=== PATIENT | female | born 1995 | race Two or more races ===

== ENCOUNTER 2018-09-14 20:22 | Emergency (ER) | payer MEDICAID ==
[~2018-09-14] VITALS: Ht 167.6 cm; Wt 77.1 kg
[2018-09-14 20:30] VITALS: BP 134/78
[2018-09-15] MEDS ORDERED: KETOROLAC TROMETH 30 MG/ML 1ML VIAL IV ONE (00:15)
[2018-09-15] MEDS ORDERED: cefTRIAXone SOD 1,000 MG VL IV ONE (00:15)
[2018-09-15] MEDS ORDERED: LIDOCAINE 1%HCL (LOCAL ANESTH) 10 ML MDV ONE (00:26)
[2018-09-15] MEDS ORDERED: LIDOCAINE 1% HCL (LOCAL ANESTH.) INJ 20ML MDV IJ ONE (00:30)
[2018-09-15] MEDS ORDERED: cefTRIAXone SOD 1,000 MG VL ONE (00:30)
[2018-09-15] MEDS ORDERED: DOXYCYCLINE 100MG/250ML 250 ML IV ONE (00:30)
[2018-09-15] MEDS ORDERED: DOXYCYCLINE 100 MG TAB/CAP PO ONE (00:45)
[2018-09-15] MEDS ORDERED: TETANUS-DIPTH-ACEL PERTUSSIS 0.5ML SYRG IM ONE (01:15)
== END 2018-09-15 01:13 | disposition home or self-care (01) ==
LOC: ER 20:22
DX: S01.311A Laceration without foreign body of right ear, initial encounter (principal); W54.0XXA Bitten by dog, initial encounter; Y93.89 Activity, other specified; Y92.89 Other specified places as the place of occurrence of the external cause; Y99.8 Other external cause status
CPT/HCPCS: 12011; 90471; 90715; 96374; 96375; 99284; J0696; J1885; J2001; J7030

== ENCOUNTER 2018-09-17 15:36 | Emergency (ER) | payer MEDICAID ==
[~2018-09-17] VITALS: Ht 167.6 cm; Wt 78.5 kg
[2018-09-17 16:28] VITALS: BP 117/67
[2018-09-17] MEDS: cefTRIAXone SOD 1,000 MG VL IM ONE (17:00)
[2018-09-17] MEDS: LIDOCAINE 1%HCL (LOCAL ANESTH) 10 ML MDV ONE (17:15)
== END 2018-09-17 18:41 | disposition home or self-care (01) ==
LOC: ER 15:43
DX: S01.311D Laceration without foreign body of right ear, subsequent encounter (principal); X58.XXXD Exposure to other specified factors, subsequent encounter
CPT/HCPCS: 96372; 99283; J0696; J2001